=== PATIENT | female | born 1935 | race Caucasian/White ===

== ENCOUNTER 2016-06-20 10:07 | Emergency (ER) | payer MEDICARE ==
[~2016-06-20 10:07] MED LIST: ACET325T11 PO; DILT60TA PO; ECASA PO; LORTA5 PO; NORC7.5T PO; VENTAER INH
[2016-06-20 10:25] VITALS: BP 131/64; PULSE 84; RESP 20; TEMP 98.7; O2SAT 94
[2016-06-20] MEDS ORDERED: DILT60TA PO (10:29)
[2016-06-20] MEDS ORDERED: GABA300C5 PO (10:29)
[2016-06-20] MEDS ORDERED: VENTAER INH (10:29)
[2016-06-20] MEDS ORDERED: predniSONE 20 MG TAB PO ONE (11:15)
[2016-06-20] MEDS ORDERED: RESP: LIDOCAINE HCL 4% PF 5 ML NEB NEB ONE (11:15)
--- NOTE | 2016-06-20 11:19 | PD ---
HPI Chief Complaint: Cold / Flu Symptoms Time Seen by Provider: 11:06 Travel History International Travel<30 days: No Contact w/Intl Traveler<30days: No Traveled to known affect area: No History of Present Illness HPI The patient is a 80-year-old female who presents emergency department for 4-5 day history of productive cough and congestion. The patient states her symptoms started on with a productive cough that produces yellow sputum in the morning and clears throughout the day. The patient also complains of facial congestion and chest congestion with her productive cough. The patient does have a history of tobacco use, her last cigarette was this morning. She denies any fever, chills, or sweats. She does complain of a mild sore throat, but denies any headache, myalgias, nausea, vomiting, diarrhea, or abdominal pain. The patient does have a history of breast cancer with previous bilateral mastectomy and underwent chemotherapy, her last dose of chemotherapy was in March, she is currently not on chemotherapy or radiation therapy. The patient's symptoms are mild to moderate, there are no known alleviating or exacerbating factors. PFSH Past Medical History Cancer: Yes (right breast) Cardiovascular Problems: Yes Chest Pain: Yes (35 YEARS AGO) Diminished Hearing: No Endocrine: No Gastrointestinal Disorders: Yes GERD: Yes Genitourinary: No Hypertension: Yes Implanted Vascular Access Dvce: Yes (Left subclavian power port (07/10/15)) Musculoskeletal: No Neurologic: No Psychiatric: No Reproductive: No Respiratory: Yes Past Surgical History Other Surgery: Yes (BILATERAL MASTECTOMY) Social History Alcohol Use: Yes (rare) Tobacco Use: Yes (1ppd) Substance Use: No Allergies-Medications (Allergen,Severity, Reaction): Coded Allergies: Penicillin (Verified Allergy, Unknown, 06/20/16) Reported Meds & Prescriptions Reported Meds & Active Scripts Active Reported Gabapentin 300 Mg Cap 300 Mg PO TID Diltiazem (Diltiazem HCl) 60 Mg Tab 60 Mg PO DAILY Ventolin Hfa 18 GM Inh (Albuterol Sulfate) 90 Mcg/Act Aer 1 Puff INH Q4H PRN Review of Systems Except as stated in HPI: all other systems reviewed are Neg General / Constitutional: No: Fever, Chills HENT: Positive: Sore Throat, Congestion Cardiovascular: No: Chest Pain or Discomfort Respiratory: Positive: Cough, Shortness of Breath, Wheezing Gastrointestinal: No: Nausea, Vomiting, Abdominal Pain Musculoskeletal: No: Myalgias, Arthralgias Skin: No Rash Neurologic: No: Weakness Physical Exam Narrative GENERAL: Awake, alert, pleasant 80-year-old female who appears her stated age and is in no acute respiratory distress. SKIN: Warm and dry. HEAD: Atraumatic. Normocephalic. EYES: No injection or drainage. ENT: No nasal bleeding or discharge. Oropharynx reveals mild erythema but no exudate. NECK: Trachea midline. No JVD. CARDIOVASCULAR: Regular rate and rhythm. No murmur appreciated. RESPIRATORY: No accessory muscle use. Prolonged expiratory phase with scattered wheezes and rhonchi. GASTROINTESTINAL: Abdomen soft, non-tender, nondistended. No rebound tenderness. MUSCULOSKELETAL: No obvious deformities. No clubbing. No cyanosis. No edema. NEUROLOGICAL: Awake and alert. No obvious cranial nerve deficits. Motor grossly within normal limits. Normal speech. PSYCHIATRIC: Appropriate mood and affect; insight and judgment normal. Data Data Last Documented VS Vital Signs Date Time Temp Pulse Resp B/P Pulse Ox O2 Delivery O2 Flow Rate FiO2 06/20/16 11:28 97 06/20/16 10:53 18 06/20/16 10:25 98.7 84 131/64 Orders Influenzae A/B Antigen (06/20/16 11:13) Ecg Monitoring (06/20/16 11:13) Oximetry (06/20/16 11:13) Oxygen Administration (06/20/16 11:13) Chest, Single Ap (06/20/16 11:13) Albuterol-Ipratropium Neb (Duoneb Neb) (06/20/16 11:15) Prednisone (Deltasone) (06/20/16 11:15) Lidocaine Pf 4% Neb (Lidocaine Pf 4% Neb (06/20/16 11:15) MDM Medical Decision Making Medical Screen Exam Complete: Yes Emergency Medical Condition: Yes Medical Record Reviewed: Yes Interpretation(s) Date/Time Procedure Status Source Growth 06/20/16 11:15 Influenza Types A,B Antigen (DIXIE) - Final Complete Nasal Aspirate NEGATIVE FOR FLU A AND B ANTIGEN.... Chest x-ray reveals no acute disease Differential Diagnosis Differential diagnosis includes bronchitis, pneumonia, influenza, URI, congestive heart failure, acute coronary syndrome, pulmonary embolism. Narrative Course The patient states she had no intention of staying overnight in the hospital when we initially discussed the treatment plan. The patient was agreeable to the chest x-ray and influenza screen with duo nebs and oral prednisone. Therefore, chest x-ray was ordered and influenza screen was sent to lab. The patient was administered 2 duo nebs with respiratory lidocaine and prednisone 60 mg orally. Chest x-ray was unremarkable, no evidence of pneumonia. Influenza screen is negative. Patient was reevaluated at 11:57 AM, her symptoms had significantly improved. The patient does have bronchitis with a history of tobacco use, will be discharged home on prednisone, albuterol nebulizers, and antibiotics. She is advised to return if symptoms worsen or progress. Diagnosis Primary Impression: Bronchitis Patient Instructions: General Instructions Additional Instructions: Medications as directed. Follow-up with your primary physician. Return if symptoms worsen or progress. Med/Other Pt SpecificInfo: Prescription(s) given Scripts Sulfamethoxazole-Trimethoprim (Bactrim DS)800-160 Mg Tab1 Tab PO BID #14 TAB Ref 0 Prov:Altaf Montano MD 06/20/16 Albuterol Neb 2.5 Mg/3 Ml Neb2.5 Mg NEB Q4HR NEB #60 NEBULE Ref 0 While awake Prov:Altaf Montano MD 06/20/16 Prednisone (Deltasone)20 Mg Tab40 Mg PO DAILY 4 Days Ref 0 Prov:Altaf Montano MD 06/20/16 Disposition: 01 DISCHARGE HOME Condition: Stable Altaf Montano MD Jun 20, 2016 11:19
[2016-06-20] MEDS: RESP: ALBUTEROL 2.5 MG/IPRATROPIUM 0.5 MG NEB (SCH) INH (11:23)
[2016-06-20 11:28] VITALS: O2SAT 97
--- NOTE | 2016-06-20 11:36 | RADHPO ---
EXAM DATE/TIME: 06/20/2016 11:21 [facility] COMPARISON: CHEST SINGLE AP, August 05, 2014, 21:57. INDICATIONS : Short of breath MEDICAL HISTORY : Carcinoma, breast. SURGICAL HISTORY : Bilateral mastectomy ENCOUNTER: Initial ACUITY: 1 day PAIN SCORE: 2/10 LOCATION: Bilateral chest FINDINGS: A single view of the chest demonstrates the lungs to be symmetrically aerated without evidence of mas s, infiltrate or effusion. The cardiomediastinal contours are unremarkable. Osseous structures are intact. CONCLUSION: No acute disease. Warren Chandler MD on June 20, 2016 at 11:34 Board Certified Radiologist. This report was verified electronically.
[2016-06-20] MEDS ORDERED: ALBU0.08 NEB (12:00)
[2016-06-20] MEDS ORDERED: PRED-503 PO (12:00)
[2016-06-20] MEDS ORDERED: BACT800T5 PO (12:00)
[2016-06-20 12:52] VITALS: BP 124/51
== END 2016-06-20 12:53 | disposition home or self-care (01) ==
LOC: PHED 10:07
DX: J40 Bronchitis, not specified as acute or chronic (principal); F17.210 Nicotine dependence, cigarettes, uncomplicated
CPT/HCPCS: 71010; 87804; 94640; 94664; 99283; J7512

== ENCOUNTER 2017-04-28 08:32 | Day surgery (SDC) | payer MEDICARE ==
[~2017-04-28] VITALS: Ht 154.9 cm; Wt 50.0 kg
[~2017-04-28 08:32] MED LIST changes: -ACET325T11 PO; +ALBU0.08 NEB; +BACT800T5 PO; -ECASA PO; +GABA300C5 PO; -LORTA5 PO; -NORC7.5T PO; +PRED-503 PO
[2017-04-28 08:45] VITALS: BP 129/62; PULSE 68; RESP 20; TEMP 97.4; O2SAT 94
[2017-04-28] MEDS ORDERED: HYDR-3288 PO (08:51)
[2017-04-28] MEDS ORDERED: SODIUM CHLOR 0.9% 1000 ML IV SCH (09:30)
[2017-04-28] MEDS ORDERED: LIDOCAINE 1%/EPINEPHrine 1:100,000 SOLN 20 ML VIAL ONE (09:47)
[2017-04-28] MEDS ORDERED: MIDAZOLAM HCL 2 MG/2 ML VIAL ONE (10:01)
[2017-04-28 10:35] VITALS: BP 117/50; PULSE 55; RESP 18; TEMP 98.1; O2SAT 94
--- NOTE | 2017-04-28 10:37 | PD.RAD ---
Post CT Procedure Prog Note Pre Procedure Diagnosis: (1) Mass of pelvis (2) Breast cancer, right Post Procedure Diagnosis: (1) Mass of pelvis (2) Breast cancer, right Procedure Date: Apr 28, 2017 Supervising Radiologist: Jabier Chavira Estimated blood loss: minimal Anesthesia: Conscious Sedation Plan of Activity Patient to Unit: ROPU Patient Condition: Good See PACS Report for procedural detail/treatment Biopsy Imaging Guidance: CT Side: Right Biopsy Procedure: Pelvic Mass, Soft Tissue Specimen: Core Biopsy Findings: soft tissue mass and bone mass of right posterior iliac bone. Soft tissue component was targeted. Plan to ROPU then discharge in 2 hours. Jabier Chavira MD Apr 28, 2017 10:37
[2017-04-28 10:50] VITALS: BP 114/46; PULSE 52; RESP 17; O2SAT 95
[2017-04-28 11:20] VITALS: BP 110/67; PULSE 57; RESP 18; O2SAT 92
[2017-04-28 11:50] VITALS: BP 103/43; PULSE 56; RESP 19; O2SAT 92
[2017-04-28 12:20] VITALS: BP 111/57; PULSE 57; RESP 18; O2SAT 94
--- NOTE | 2017-04-28 14:49 | RADRPT ---
EXAM DATE/TIME: 04/28/2017 10:14 [facility] COMPARISON: No previous studies available for comparison. Outside MRI was reviewed. INDICATIONS : Right iliac lesion. SEDATION TIME: 30 minutes BIOPSY SITE: Right iliac. MEDICATION(S): 1.) 1 mg midazolam (Versed) IV 2.) 50 mcg fentanyl (Sublimaze) IV DEVICE(S): 1.) 16 gauge Temno core biopsy needle MEDICAL HISTORY : Carcinoma, breast. Chronic obstructive pulmonary disease. Hypertension. SURGICAL HISTORY : Mastectomy, bilateral. ENCOUNTER: Initial ACUITY: 1 day PAIN SCORE: 3/10 LOCATION: Right pelvis A total of four core specimen(s) were obtained and sent to the laboratory for pathologic evaluation. PROCEDURE: 1. CT guided bone deep biopsy. Prior to the procedure informed consent was obtained. Any appropriate prior imaging studies were rev iewed. Using automated exposure control and adjustment of the mA and/or kV according to patient size, radiat ion dose was kept as low as reasonably achievable to obtain optimal diagnostic quality images. DICOM format image data is available electronically for review and comparison. The site was prepped in a sterile fashion. Full sterile technique was used, including cap, mask, maria t rile gloves and gown and a large sterile sheet. Hand hygiene and 2% chlorhexidine and/or betadine/al cohol prep was utilized per protocol for cutaneous antisepsis. The skin and subcutaneous tissues wer e infiltrated with local anesthetic solution. With CT guidance the right posterior iliac bone and adjacent soft tissue mass was localized. Biopsy w as performed using the prescribed needle as above. Adequate hemostasis was obtained with compression at the puncture site. Follow-up CT scan reveals no hemorrhage or acute abnormality. The patient tolerated the procedure well and there were no complications. The patient was returned to the Radiology Outpatient Unit in stable condition. CONCLUSION: Uncomplicated CT guided biopsy of the right posterior iliac bone and soft tissue mass. Jabier Chavira MD on April 28, 2017 at 14:47 Board Certified Radiologist. This report was verified electronically.
== END 2017-04-28 12:34 | disposition home or self-care (01) ==
LOC: HRIP 08:32 → HRAD 08:32
PROVIDERS: ATTEND Internal Medicine Hematology & Oncology
DX: C79.51 Secondary malignant neoplasm of bone (principal); C50.911 Malignant neoplasm of unspecified site of right female breast; I10 Essential (primary) hypertension; J44.9 Chronic obstructive pulmonary disease, unspecified
CPT/HCPCS: 20220; 77012; 88307; 99152; 99153; J2250; J3010; J7030; 88305

== ENCOUNTER → 2017-05-23 | Day surgery (SDC) | payer MEDICARE ==
[~2017-05-23] MED LIST changes: -BACT800T5 PO; +BUPIVACAINE/EPINEPHRINE 0.5% PF 30 ML VIAL ONE; +HYDR-3288 PO; +LACTATED RINGER'S 1000 ML INJ 1,000 ML ONE; +LIDOCAINE 1.5%/EPINEPHrine 1:200,000 PF SOLN 30 ML AMP ONE; +MIDAZOLAM HCL 2 MG/2 ML VIAL ONE; -PRED-503 PO; +PROPOFOL 200 MG/20 ML AMP IV ONE; +SODIUM CHLOR 0.9% 250 ML INJ 250 ML IV ONE; +SODIUM CHLORIDE 0.9% INJ 10 ML ONE; +VANCOMYCIN HCL 1000 MG VIAL ONE
--- NOTE | 2017-05-23 11:00 | TN ---
cc: SANJU MARC M.D., ABDUL J. M.D. DATE OF SURGERY: 05/23/2017 PREOPERATIVE DIAGNOSES Malignancy, in need of chemotherapy for poor IV access. POSTOPERATIVE DIAGNOSIS Malignancy, in need of chemotherapy for poor IV access. PROCEDURE Placement of LEFT SIDED [id number] left side under fluoroscopic guidance. ANESTHESIA TIVA. SURGEON Dr. Marc. INDICATION This is a pleasant 81-year female who was found to have recurrent breast cancer. She requires an [id number]-C-Qiun for chemotherapy. Plans were made for above. DETAILS OF PROCEDURE The patient was taken to the operating room and placed in the supine position. After anesthesia her left shoulder and chest and neck were prepped with Betadine. We anesthetize the infraclavicular area with Marcaine solution. We cannulate the subclavian vein without difficulty. Advancing the guidewire she does have some aberrant anatomy and appears to go down the left side azygous vein. With some manipulation we are able to get it go through the innominate vein over across to the superior vena cava. This is all done under fluoroscopic guidance. Once this was done we then make a subcutaneous pocket at the left infraclavicular area. The dilator and introducer are then threaded over the guidewire under fluoroscopic guidance. The guidewire and the dilator were removed and the catheter was threaded through the introducer and placed at 18 cm, cut to size so it lays in the superior vena cava. The catheter is then snapped into the port site in the typical fashion and secured to a deep layer with 3-0 Vicryl and skin is closed with 4-0 Vicryl. Steri-Strips are applied. Sterile bandage applied. The patient tolerated the procedure well, had no immediate post-op complications. A stat. portable chest x-ray is pending at the time of this dictation. Sanju Marc MD JDB/PRAKASH /10:30 AM /10:39 AM IVON
== END | disposition home or self-care (01) ==
LOC: ESDC 07:20
PROVIDERS: ATTEND Surgery
DX: Z45.2 Encounter for adjustment and management of vascular access device (principal); C50.911 Malignant neoplasm of unspecified site of right female breast
CPT/HCPCS: 00532; 36561; 77001; C1788; J2250; J3010; J3370; J7050; J7120

== ENCOUNTER 2017-07-30 18:37 | Emergency (ER) | payer MEDICARE ==
[~2017-07-30] VITALS: Ht 154.9 cm; Wt 46.0 kg
[~2017-07-30 18:37] MED LIST changes: -BUPIVACAINE/EPINEPHRINE 0.5% PF 30 ML VIAL ONE; -LACTATED RINGER'S 1000 ML INJ 1,000 ML ONE; -LIDOCAINE 1.5%/EPINEPHrine 1:200,000 PF SOLN 30 ML AMP ONE; -MIDAZOLAM HCL 2 MG/2 ML VIAL ONE; -PROPOFOL 200 MG/20 ML AMP IV ONE; -SODIUM CHLOR 0.9% 250 ML INJ 250 ML IV ONE; -SODIUM CHLORIDE 0.9% INJ 10 ML ONE; -VANCOMYCIN HCL 1000 MG VIAL ONE
[2017-07-30 18:42] VITALS: BP 146/66; PULSE 77; RESP 16; TEMP 98.5; O2SAT 98
--- NOTE | 2017-07-30 18:56 | PD ---
HPI Chief Complaint: Injury Time Seen by Provider: 18:46 Travel History International Travel<30 days: No Contact w/Intl Traveler<30days: No Traveled to known affect area: No History of Present Illness HPI 81 year old female presents to the emergency department for evaluation of right foot injury that occurred yesterday. She states she was getting off the couch when she twisted her right foot. 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 She is currently on chemotherapy and reports brittle bones. Patient denies any other injury. She states she takes oxycodone at home for pain, but hasn't taken it recently. Patient denies any other injury. Movement , ambulation will exacerbate pain. Rest, ice will help alleviate pain. Moderate severity. Current pain is 9/10 without radiation to the lateral right foot, aching and throbbing. PFSH Past Medical History Cancer: Yes (right breast) Cardiovascular Problems: Yes (irregular heart beat) Chest Pain: Yes (35 YEARS AGO) Diminished Hearing: No Endocrine: No Gastrointestinal Disorders: Yes GERD: Yes Genitourinary: No Hypertension: Yes Implanted Vascular Access Dvce: Yes (Left subclavian power port (07/10/15)) Musculoskeletal: No Neurologic: No Psychiatric: No Reproductive: No Respiratory: Yes (copd) Past Surgical History Other Surgery: Yes (BILATERAL MASTECTOMY) Social History Alcohol Use: Yes (rare) Tobacco Use: Yes (1ppd) Substance Use: No Allergies-Medications (Allergen,Severity, Reaction): Coded Allergies: penicillin G (Unverified Allergy, Unknown, 07/30/17) Reported Meds & Prescriptions Reported Meds & Active Scripts Active Albuterol Neb (Albuterol Sulfate) 2.5 Mg/3 Ml Neb 2.5 Mg NEB Q4HR NEB While awake Reported [place] (Hydrocodone-Acetaminophen) 7.5-325 mg Tab 1 Tab PO Q4H PRN Gabapentin 300 Mg Cap 300 Mg PO TID Diltiazem (Diltiazem HCl) 60 Mg Tab 60 Mg PO DAILY Ventolin Hfa 18 GM Inh (Albuterol Sulfate) 90 Mcg/Act Aer 1 Puff INH Q4H PRN Review of Systems Except as stated in HPI: all other systems reviewed are Neg Physical Exam Narrative GENERAL: Well-nourished, well-developed female patient, afebrile. SKIN: Focused skin assessment warm/dry. No lacerations or abrasions. HEAD: Normocephalic. Atraumatic. EYES: No scleral icterus. No injection or drainage. NECK: Supple, trachea midline. No JVD or lymphadenopathy. CARDIOVASCULAR: Regular rate and rhythm without murmurs, gallops, or rubs. Right pedal pulse is 2+. RESPIRATORY: Breath sounds equal bilaterally. No accessory muscle use. GASTROINTESTINAL: Abdomen soft, non-tender, nondistended. MUSCULOSKELETAL: No cyanosis, or edema. Patient has tenderness over right lateral foot. Patient has full sensation to the right distal lower extremity. Capillary refill less than 2 seconds to the distal right lower extremity. BACK: Nontender without obvious deformity. No CVA tenderness. Data Data Last Documented VS Vital Signs Date Time Temp Pulse Resp B/P (MAP) Pulse Ox O2 Delivery O2 Flow Rate FiO2 07/30/17 18:42 98.5 77 16 146/66 (92) 98 Orders Orders Foot, Complete ([id number]) (07/30/17 ) Ondansetron Odt (Zofran Odt) (07/30/17 19:00) Oxycodone-Acetamin 5-325 Mg (Percocet (07/30/17 19:00) MDM Medical Decision Making Medical Screen Exam Complete: Yes Emergency Medical Condition: Yes Medical Record Reviewed: Yes Interpretation(s) x-ray right foot - CONCLUSION: 1. Osseous structures are radiographically intact. 2. Mild lateral soft tissue swelling. Differential Diagnosis fracture vs. contusion vs. sprain vs. dislocation Narrative Course 81 year old female presents to the emergency department for evaluation of right foot injury. X-ray of the right foot is ordered and pending. Patient will be given Percocet 5/325 mg for pain as this is what she takes at home. X-ray of the right foot shows no acute bony injury. Patient is provided Albert bandage. She is to take her pain medication that she has a home as needed for pain. She declines crutches. Patient is instructed ice and elevate. She verbalizes agreement and understanding. The patient was discharged in stable condition with instructions, including return instructions and follow up instructions. Diagnosis Primary Impression: Right foot sprain Qualified Codes: S93.601A - Unspecified sprain of right foot, initial encounter Referrals: Primary Care Physician call for appointment Patient Instructions: Foot Sprain (ED), General Instructions Additional Instructions: Wear Albert bandage as needed for support. Ice for 20 minutes 4-5 times daily. Elevate. Take your already prescribed pain medication as needed for pain. Follow-up with your primary care physician. Return to the emergency department for any acute worsening of symptoms. Med/Other Pt SpecificInfo: No Change to Meds Disposition: 01 DISCHARGE HOME Condition: Stable Toya Lizarraga Jul 30, 2017 18:56
[2017-07-30] MEDS ORDERED: ONDANSETRON ODT 4 MG TAB PO ONE (19:00)
[2017-07-30] MEDS ORDERED: oxyCODONE/ACETAMINOPHEN 5 MG/325 MG TAB PO ONE (19:00)
--- NOTE | 2017-07-30 19:09 | RADRPT ---
EXAM DATE/TIME: 07/30/2017 18:57 [facility] COMPARISON: No previous studies available for comparison. INDICATIONS : Twisted foot, has pain MEDICAL HISTORY : Carcinoma, lung. Carcinoma, bone. liver cancer SURGICAL HISTORY : None. ENCOUNTER: Initial ACUITY: 2 days PAIN SCORE: 9/10 LOCATION: Right foot FINDINGS: There is a scattered and regional areas of osteopenia. Mild hallux valgus deformity. No fracture is seen. No dislocation. No radiopaque foreign bodies. CONCLUSION: No evidence of recent injury. Mild hallux valgus. Arnaldo Sweeney MD on July 30, 2017 at 19:06 Board Certified Radiologist. This report was verified electronically.
== END 2017-07-30 19:45 | disposition home or self-care (01) ==
LOC: PHEFT 18:37
DX: S93.601A Unspecified sprain of right foot, initial encounter (principal); F17.210 Nicotine dependence, cigarettes, uncomplicated; C79.51 Secondary malignant neoplasm of bone; C78.7 Secondary malignant neoplasm of liver and intrahepatic bile duct; X50.1XXA Overexertion from prolonged static or awkward postures, initial encounter; Y92.008 Other place in unspecified non-institutional (private) residence as the place of occurrence of the external cause; Z85.118 Personal history of other malignant neoplasm of bronchus and lung; Z88.0 Allergy status to penicillin
CPT/HCPCS: 73630; 99283

== ENCOUNTER 2017-08-14 12:28 | Day surgery (SDC) | payer MEDICARE ==
[2017-08-14 13:04] VITALS: BP 141/76; PULSE 71; RESP 18; TEMP 97.6; O2SAT 94
[2017-08-14 14:25] VITALS: BP 133/54; PULSE 69; RESP 18; O2SAT 93
[2017-08-14] MEDS ORDERED: ALTEPLASE RECOMBINANT 2 MG VIAL PRN (15:00)
--- NOTE | 2017-08-14 15:07 | RADRPT ---
EXAM DATE/TIME: 08/14/2017 14:11 [facility] COMPARISON: No previous studies available for comparison. INDICATIONS : Patient presents with non functioning port here for patency injection. MEDICAL HISTORY : Carcinoma Lung and Bone SURGICAL HISTORY : NA ENCOUNTER: Initial ACUITY: 1 week PAIN SCORE: 0/10 FLUORO TIME: 0.1 minutes IMAGE SERIES: 1 CONTRAST: 10 cc Omnipaque (iohexol) 350 ACCESS: Left port PROCEDURE : 1. Access of [id number]. 2. Port patency injection. The risks, benefits and alternatives to the procedure were explained and verbal and written consent w as obtained. The patient was placed supine. The port was prepped in sterile fashion. Full sterile t echnique was used, including cap, mask, sterile gloves and gown, and a large sterile sheet. Hand hyg iene and 2% chlorhexidine prep was utilized per protocol for cutaneous antisepsis with appropriate dr y time for site. The previously placed port was accessed and positive contrast was injected for evaluation. Injection demonstrates fibrin sheath at the catheter tip. Central venous system is otherwise patent CONCLUSION: Fibrin sheath at the catheter tip. Portable will be locked with 2 mg TPA. Judah Zheng MD on August 14, 2017 at 15:05 Board Certified Radiologist. This report was verified electronically.
--- NOTE | 2017-08-14 15:55 | PD.RAD ---
Post Procedure Progress Note Pre Procedure Diagnosis: (1) Port-a-cath in place (2) Unable to Aspirate Port-a-Cath (3) Mass of pelvis (4) Breast cancer, right Post Procedure Diagnosis: (1) Mass of pelvis (2) Port-a-cath in place (3) Breast cancer, right (4) Unable to Aspirate Port-a-Cath Procedure Date: Aug 14, 2017 Supervising Radiologist: Judah Zheng Proceduralist/Assist: Marissa Jett, RT(R), Prudence Cross RT(R) Plan of Activity Patient to Unit: ROPU Patient Condition: Good See PACS Report for procedural detail/treatment Central Venous Access Device Procedure 1 Left Subclavian Infusaport Evaluation single lumen Findings: Fibrin sheath at catheter tip Judah Zheng MD Aug 14, 2017 15:55
== END 2017-08-14 16:13 | disposition home or self-care (01) ==
LOC: HROP 12:28 → HRIP 12:29 → HROP 16:13
PROVIDERS: ATTEND Internal Medicine Hematology & Oncology
DX: T82.898A Other specified complication of vascular prosthetic devices, implants and grafts, initial encounter (principal); C79.51 Secondary malignant neoplasm of bone; C50.911 Malignant neoplasm of unspecified site of right female breast; Z17.1 Estrogen receptor negative status [ER-]; Z85.118 Personal history of other malignant neoplasm of bronchus and lung; I10 Essential (primary) hypertension; R01.1 Cardiac murmur, unspecified
CPT/HCPCS: 36598; J2997

== ENCOUNTER 2017-10-29 18:23 | Emergency (ER) | payer MEDICARE ==
[~2017-10-29 18:23] MED LIST changes: -ALBU0.08 NEB; -HYDR-3288 PO; -VENTAER INH
[2017-10-29 18:26] VITALS: BP 152/64; PULSE 111; RESP 22; TEMP 99.9; O2SAT 96
[2017-10-29] MEDS ORDERED: HYDR4TAB PO (19:15)
[2017-10-29] MEDS ORDERED: PROC10TA PO (19:15)
[2017-10-29] MEDS ORDERED: MULTTAB67 PO (19:16)
[2017-10-29 19:17] VITALS: RESP 24; TEMP 99.1; O2SAT 88
--- NOTE | 2017-10-29 19:25 | PD ---
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 Fever at home was 100.8. She has been nauseous and throwing up, has been coughing but states that that is not anything new. She also states she has had some diarrhea as well. She denies any chest pains or other issues. They do not know of any sick contacts. Modifying Factors: None Associated Signs & Symptoms: Fevers, nausea, vomiting, diarrhea, coughing Risk Factors: Breast cancer currently on chemotherapy PFSH Past Medical History Cancer: Yes (R breast, kidney and lung) Cardiovascular Problems: Yes (irregular heart beat) Chemotherapy: Yes (currently) Chest Pain: Yes COPD: Yes Diminished Hearing: Yes (CHEVAK) Endocrine: No Gastrointestinal Disorders: Yes GERD: Yes Genitourinary: No Hypertension: Yes Implanted Vascular Access Dvce: Yes (L sublcavian infusaport) Musculoskeletal: No Neurologic: No Psychiatric: No Reproductive: No Respiratory: Yes (copd) Past Surgical History Mastectomy: Yes (bilateral) Other Surgery: Yes (BILATERAL MASTECTOMY) Social History Alcohol Use: No Tobacco Use: Yes Substance Use: No Allergies-Medications (Allergen,Severity, Reaction): Coded Allergies: penicillin G (Verified Allergy, Unknown, 10/29/17) Reported Meds & Prescriptions Reported Meds & Active Scripts Active Reported Multiple Vitamin 1 Tab 1 Tab PO DAILY Prochlorperazine Maleate 10 Mg Tab 10 Mg PO Q6H PRN Hydromorphone (Hydromorphone HCl) 4 Mg Tab 4 Mg PO Q4H PRN Gabapentin 300 Mg Cap 300 Mg PO TID Diltiazem (Diltiazem HCl) 60 Mg Tab 60 Mg PO DAILY Review of Systems Except as stated in HPI: all other systems reviewed are Neg Physical Exam Narrative GENERAL: Cachectic elderly white female patient currently in mild distress. Awake and oriented 3. SKIN: Focused skin assessment warm/dry. HEAD: Atraumatic. Normocephalic. EYES: Pupils equal and round. No scleral icterus. No injection or drainage. ENT: No nasal bleeding or discharge. Mucous membranes pink and moist. NECK: Trachea midline. No JVD. Supple. CARDIOVASCULAR: Regular rate and rhythm. No murmur appreciated. RESPIRATORY: No accessory muscle use. Decreased throughout bilaterally to auscultation. Breath sounds equal bilaterally. GASTROINTESTINAL: Abdomen soft, non-tender, nondistended. Hepatic and splenic margins not palpable. MUSCULOSKELETAL: No obvious deformities. No clubbing. No cyanosis. No edema. NEUROLOGICAL: Awake and alert. No obvious cranial nerve deficits. Motor grossly within normal limits. Normal speech. PSYCHIATRIC: Appropriate mood and affect; insight and judgment normal. Data Data Last Documented VS Vital Signs Date Time Temp Pulse Resp B/P (MAP) Pulse Ox O2 Delivery O2 Flow Rate FiO2 10/29/17 20:33 85 20 121/56 (77) 97 Nasal Cannula 10/29/17 20:00 2.00 10/29/17 19:17 99.1 Orders Orders Sepsis Workup Initiated (10/29/17 ) Complete Blood Count With Diff (10/29/17 19:14) Comprehensive Metabolic Panel (10/29/17 19:14) Lactic Acid Sepsis Protocol (10/29/17 19:14) Troponin I (10/29/17 19:14) Urinalysis - C+S If Indicated (10/29/17 19:14) Blood Culture (10/29/17 19:14) Chest, Single Ap (10/29/17 19:14) Blood Glucose (10/29/17 19:14) Ecg Monitoring (10/29/17 19:14) Iv Access Insert/Monitor (10/29/17 19:14) Oximetry (10/29/17 19:14) Oxygen Administration (10/29/17 19:14) Influenzae A/B Antigen (10/29/17 19:25) Heparin Inj (Heparin Inj) (10/29/17 21:30) Ed Discharge Order (10/29/17 21:19) Labs Laboratory Tests Test 10/29/17 20:00 10/29/17 20:25 White Blood Count 10.1 TH/MM3 Red Blood Count 2.21 MIL/MM3 Hemoglobin 7.3 GM/DL Hematocrit 21.4 % Mean Corpuscular Volume 93.5 FL Mean Corpuscular Hemoglobin 33.0 PG Mean Corpuscular Hemoglobin Concent 35.3 % Red Cell Distribution Width 19.0 % Platelet Count 37 TH/MM3 Mean Platelet Volume 8.9 FL Neutrophils (%) (Auto) 77.6 % Lymphocytes (%) (Auto) 11.3 % Monocytes (%) (Auto) 8.8 % Eosinophils (%) (Auto) 0.7 % Basophils (%) (Auto) 1.6 % Neutrophils # (Auto) 7.8 TH/MM3 Lymphocytes # (Auto) 1.1 TH/MM3 Monocytes # (Auto) 0.9 TH/MM3 Eosinophils # (Auto) 0.1 TH/MM3 Basophils # (Auto) 0.2 TH/MM3 CBC Comment AUTO DIFF Differential Comment AUTO DIFF CONFIRMED Platelet Estimate LOW Platelet Morphology Comment NORMAL Ovalocytes 1+ Blood Urea Nitrogen 18 MG/DL Creatinine 0.67 MG/DL Random Glucose 93 MG/DL Total Protein 6.8 GM/DL Albumin 2.5 GM/DL Calcium Level 8.6 MG/DL Alkaline Phosphatase 130 U/L Aspartate Amino Transf (AST/SGOT) 14 U/L Alanine Aminotransferase (ALT/SGPT) 22 U/L Total Bilirubin 0.7 MG/DL Sodium Level 130 MEQ/L Potassium Level 4.2 MEQ/L Chloride Level 94 MEQ/L Carbon Dioxide Level 27.1 MEQ/L Anion Gap 9 MEQ/L Estimat Glomerular Filtration Rate 85 ML/MIN Lactic Acid Level 0.8 mmol/L Troponin I LESS THAN 0.02 NG/ML Urine Color YELLOW Urine Turbidity CLEAR Urine pH 6.0 Urine Specific [place] 1.025 Urine Protein NEG mg/dL Urine Glucose (UA) NEG mg/dL Urine Ketones NEG mg/dL Urine Occult Blood NEG Urine Nitrite NEG Urine Bilirubin NEG Urine Urobilinogen 1.0 MG/DL Urine Leukocyte Esterase NEG Urine RBC 0-3 /hpf Urine WBC 3-5 /hpf Urine Squamous Epithelial Cells 0-5 /hpf Urine Bacteria NONE /hpf Microscopic Urinalysis Comment CULT NOT INDICATED MDM Medical Decision Making Medical Screen Exam Complete: Yes Emergency Medical Condition: Yes Medical Record Reviewed: Yes Interpretation(s) Laboratory Tests Test 10/29/17 20:00 10/29/17 20:25 Red Blood Count 2.21 MIL/MM3 (4.00-5.30) Hemoglobin 7.3 GM/DL (11.6-15.3) Hematocrit 21.4 % (35.0-46.0) Red Cell Distribution Width 19.0 % (11.6-17.2) Platelet Count 37 TH/MM3 (150-450) Neutrophils (%) (Auto) 77.6 % (16.0-70.0) Monocytes (%) (Auto) 8.8 % (0.0-8.0) Neutrophils # (Auto) 7.8 TH/MM3 (1.8-7.7) Platelet Estimate LOW (NORMAL) Ovalocytes 1+ (NORMAL) Albumin 2.5 GM/DL (3.4-5.0) Alkaline Phosphatase 130 U/L (45-117) Aspartate Amino Transf (AST/SGOT) 14 U/L (15-37) Sodium Level 130 MEQ/L (136-145) Chloride Level 94 MEQ/L (98-107) Estimat Glomerular Filtration Rate 85 ML/MIN (>89) Troponin I LESS THAN 0.02 NG/ML Last 24 hours Impressions Chest X-Ray 10/29/17 095 Signed Impressions: Service Date/Time: Sunday, October 29, 2017 19:27 - CONCLUSION: 1. Minimal bibasilar densities. 2. Prominence of the right hilum. Gumaro Ferrari MD Differential Diagnosis Pneumonia versus sepsis versus UTI versus gastroenteritis versus neutropenic fever Narrative Course Patient is afebrile in the ER. Chest x-ray did not show any signs of obvious pneumonia. Lab work did not show significant leukocytosis. She does have hemoglobin of 7 which is a bit lower than her baseline, patient states that she knows that she is anemic and has been told in the past. Her platelets are also low, she states she is aware that as well. She does not have a UTI. She is not neutropenic. She does not have any further vomiting episodes in the ER. She has been prescribed Phenergan as well as hydrocodone for pain, new prescriptions. At this point, I have talked to the patient and her regarding findings and have offered to admit her as an observation considering her medical history and have offered to talk to her oncologist, Dr. Beckwith, but she does not want me to do anything further at this time, states that she just wants to go home at this point and follow-up as an outpatient with him. At this point, my plan would be to release her. She should return for any worsening in symptoms. The plan was discussed with her and she states understanding. Diagnosis Primary Impression: Chills (without fever) Disposition: 01 DISCHARGE HOME Condition: Stable Abigail Mariano MD October 29, 2017 19:25
--- NOTE | 2017-10-29 19:47 | RADRPT ---
EXAM DATE/TIME: 10/29/2017 19:27 [facility] COMPARISON: CHEST SINGLE AP, June 20, 2016, 11:21. INDICATIONS : Post chemo fever. MEDICAL HISTORY : Carcinoma, breast. SURGICAL HISTORY : Mastectomy, bilateral. ENCOUNTER: Initial ACUITY: 1 day PAIN SCORE: 0/10 LOCATION: Bilateral chest FINDINGS: A single view of the chest demonstrates minimal bibasilar densities. Prominence in the right suprahil ar region. Left-sided port with tip in the SVC. Heart normal in size. Surgical clips overlying the ri ght chest/breast. Osseous structures are intact. CONCLUSION: 1. Minimal bibasilar densities. 2. Prominence of the right hilum. Gumaro Ferrari MD on October 29, 2017 at 19:42 Board Certified Radiologist. This report was verified electronically.
[2017-10-29 20:33] VITALS: BP 121/56; PULSE 85; RESP 20; O2SAT 97
[2017-10-29 20:36] LABS: CHLORIDE 94 MEQ/L (98-107); SODIUM (NA) 130 MEQ/L (136-145)
[2017-10-29 20:40] LABS: ALBUMIN 2.5 GM/DL (3.4-5.0); BICARBONATE 27.1 MEQ/L (21.0-32.0); BLOOD UREA NITROGEN 18 MG/DL (7-18); CALCIUM 8.6 MG/DL (8.5-10.1); GLUCOSE,RANDOM 93 MG/DL (74-106)
[2017-10-29 20:43] LABS: ALT (GPT) 22 U/L (10-53); AST (GOT) 14 U/L (15-37); AUTOMATED NEUTROPHIL # 7.8 TH/MM3 (1.8-7.7); BASOPHIL # 0.2 TH/MM3 (0-0.2); BASOPHIL % 1.6 % (0.0-2.0); CREATININE 0.67 MG/DL (0.50-1.00); EOSINOPHIL # 0.1 TH/MM3 (0-0.4); EOSINOPHIL % 0.7 % (0.0-4.0); GLOMERULAR FILTRATION RATE 85 ML/MIN (>89); HEMOGLOBIN 7.3 GM/DL (11.6-15.3); LYMPH % 11.3 % (9.0-44.0); LYMPHOCYTE # 1.1 TH/MM3 (1.0-4.8); MEAN CELL VOLUME 93.5 FL (80.0-100.0); MEAN CORPUSCULAR HGB CONC 35.3 % (32.0-36.0); MEAN PLATELET VOLUME 8.9 FL (7.0-11.0); MONO % 8.8 % (0.0-8.0); MONOCYTE # 0.9 TH/MM3 (0-0.9); NEUT % 77.6 % (16.0-70.0); PLATELET COUNT 37 TH/MM3 (150-450); RED BLOOD COUNT 2.21 MIL/MM3 (4.00-5.30); WHITE BLOOD COUNT 10.1 TH/MM3 (4.0-11.0)
[2017-10-29 20:44] LABS: HEMATOCRIT 21.4 % (35.0-46.0)
[2017-10-29 20:45] LABS: TOTAL BILIRUBIN ADULT 0.7 MG/DL (0.2-1.0); TOTAL PROTEIN 6.8 GM/DL (6.4-8.2)
[2017-10-29 20:46] LABS: ALKALINE PHOSPHATASE 130 U/L (45-117)
[2017-10-29 20:48] LABS: TROPONIN I LESS THAN 0.02 NG/ML (0.02-0.05)
[2017-10-29 21:02] LABS: BILIRUBIN, URINE NEG (NEG); BLOOD, URINE NEG (NEG); GLUCOSE,URINE NEG (NEG); KETONE, URINE NEG (NEG); NITRITE,URINE NEG (NEG); URINE COLOR YELLOW (YELLW/STRAW); URINE LEUKOCYTE ESTERASE NEG (NEG)
[2017-10-29 21:03] LABS: OVALOCYTES 1+ (NORMAL)
[2017-10-29 21:07] LABS: RBC, URINE 0-3 /hpf (0-3)
[2017-10-29 21:08] LABS: SQUAMOUS EPITHELIAL CELL URINE 0-5 /hpf (0-5)
[2017-10-29] MEDS ORDERED: HEPARIN SODIUM - IV 10,000 UNITS/10 ML VIAL IV ONE (21:30)
[2017-10-29] MEDS ORDERED: SODIUM CHLORIDE 0.9% FLUSH 10 ML FLUSH IV FLUSH PRN ×2 (22:30)
[2017-10-29 22:39] VITALS: BP 126/56
== END 2017-10-29 22:56 | disposition home or self-care (01) ==
LOC: PHED 18:23
DX: R68.83 Chills (without fever) (principal); R11.2 Nausea with vomiting, unspecified; R19.7 Diarrhea, unspecified; C50.911 Malignant neoplasm of unspecified site of right female breast; C79.9 Secondary malignant neoplasm of unspecified site; D64.9 Anemia, unspecified; I10 Essential (primary) hypertension; J44.9 Chronic obstructive pulmonary disease, unspecified; Z72.0 Tobacco use
CPT/HCPCS: 71045; 80053; 81001; 83605; 84484; 85025; 87040; 87804; 99284; J1642